=== PATIENT | male | born 1985 | race Caucasian/White ===

== ENCOUNTER 2018-11-18 08:37 | Emergency (ER) | payer MEDICAID, SELFPAY ==
[2018-11-18 08:43] VITALS: BP 125/74; PULSE 80; RESP 16; TEMP 36.9; O2SAT 97
--- NOTE | 2018-11-18 08:52 | ED.GENADUL_ITS ---
Discharge Plan Disposition Patient Disposition: HOME Condition: Stable Discharge Details Chief Complaint: Laceration Clinical Impression: Laceration of knee, left Primary Care Provider: Seth Barrera ED Provider: Christiano Gardner Home Meds and New Rx's Prescriptions: No Action prazosin 1 MG capsule 1 mg PO QAM Qty: 30 RF: 11 amitriptyline 50 MG tablet 50 mg PO HS 30 Days Qty: 30 RF: 11 fluvoxamine 50 MG tablet 150 mg PO HS Qty: 150 RF: 11 prazosin 2 MG capsule 4 mg PO QPM Qty: 60 RF: 11 Discharge Instructions Instructions: Laceration (ED) Additional Instructions: return in 10 days for suture removal if redness spreads away from the knee or you have yellow/white discharge from the wound return to the emergency department Medical Decision Making Pt was cutting using a chainsaw when it slipped and hit left anterior leftknee. Denies loc or other injuries. Has 3 lacerations that run vertically over the anterior left knee that are 3,1 and 2cm in length. Has full rom of the knee so doubt tendon injury and not deep enough where joint capsul involvement would be worrisome, will irrigtae and suture. wounds closed with 11 sutures, return precautions given for infection and he will return in 10 days for wound eval for suture removal Differential Diagnosis lac, abrasion HPI General Mode of arrival: ambulatory . Date/Time Provider Initiated Documentation: 11/18/18 08:49 . Limitations to Documentation: no limitations . Information obtained by: patient . History of Present Illness 33 year old M presents to the emergency department with the chief complaint of left knee lac, described as moderate, Quality is described as aching, and is localized to the left and lower extremity. Patient started experiencing this minute(s) (30) and it has been constant. No relieving factors improve symptom(s), No exacerbating factors reported . Patient notes no other symptoms.. Patient did receive the following treatments prior to arrival, none Related Data Home Medications Medication Instructions Recorded Confirmed amitriptyline 50 mg PO HS 30 Days #30 tab-cap 02/22/18 fluvoxamine 150 mg PO HS #150 tab-cap 02/22/18 prazosin 1 mg PO QAM #30 tab-cap 02/22/18 prazosin 4 mg PO QPM #60 tab-cap 02/22/18 Previous Rx's Medication Instructions Recorded amitriptyline 50 mg PO HS 30 Days #30 tab-cap 02/22/18 fluvoxamine 150 mg PO HS #150 tab-cap 02/22/18 prazosin 1 mg PO QAM #30 tab-cap 02/22/18 prazosin 4 mg PO QPM #60 tab-cap 02/22/18 Allergies Allergy/AdvReac Type Severity Reaction Status Date / Time No Known Allergies Allergy Unverified 01/24/18 18:02 General Stated Complaint: Laceration PRAVEEN: 4 Review of Systems Review of Systems All systems reviewed & are unremarkable except as noted in HPI and below Constitutional Denies chills, Denies fever(s) and Denies weakness Cardiovascular Denies chest pain and Denies dyspnea Respiratory Denies cough and Denies dyspnea Gastrointestinal Denies abdominal pain, Denies nausea and Denies vomiting Musculoskeletal Denies joint swelling Neurologic Denies weakness PFSH Family History Mother Neoplasm Father Heart disease Myocardial infarction Grandfather Heart disease Myocardial infarction Grandfather Heart disease Myocardial infarction Grandmother No problems noted. Grandmother No problems noted. Social History Smoking/Tobacco Use Status: Current every day Drug use: Never Do you feel safe in your relationship?: Yes Exam Const General: no acute distress Orientation: alert HENMT Head: normal to inspection Ears: external ears normal General nose exam: external nose normal Mouth: moist mucous membranes Eyes General: appearance normal, both eyes and all related structures Neck Neck: normal visual inspection Resp Effort & Inspection: normal respiratory effort and able to speak in complete sentences Cardio Rate: regular rate Skin General skin exam: no rashes or lesions noted Neuro General: alert and oriented x3 Extrem General: full ROM Psych Mental Status: mental status grossly normal Course Vital Signs Temperature 36.9 C 11/18/18 08:43 Pulse 80 11/18/18 08:43 Respiratory Rate 16 11/18/18 08:43 Blood Pressure 125/74 11/18/18 08:43 Pulse Oximetry 97 11/18/18 08:43 Temperature 36.9 C 11/18/18 08:43 Temperature Source Skin 11/18/18 08:43 Pulse 80 11/18/18 08:43 Respiratory Rate 16 11/18/18 08:43 Blood Pressure 125/74 11/18/18 08:43 Blood Pressure Position Sitting 11/18/18 08:43 Pulse Oximetry 97 11/18/18 08:43 Oxygen Delivery Method Room Air 11/18/18 08:43 Oxygen Flow Rate 0 11/18/18 08:43 Pain Level 4 11/18/18 08:43 Procedures Laceration Laceration 1: Site: lower extremity Side (If applicable): left Size (cm): 6 Description: linear Depth: simple, single layer Local Anesthetic: with Epi Amount of anesthesia used (mL): 10 Pre-repair: wound explored Skin layer closed with: nylon Size (cm): 4-0 Number of sutures: 11 Technique: simple, interrupted
== END 2018-11-18 09:40 | disposition home or self-care (01) ==
PROVIDERS: Emergency Provider Emergency Medicine; PCP Family Medicine
DX: S81.012A Laceration without foreign body, left knee, initial encounter (principal); W29.3XXA Contact with powered garden and outdoor hand tools and machinery, initial encounter
CPT/HCPCS: 12002; 90471

== ENCOUNTER 2020-01-02 20:36 | Outpatient (REF) | payer MEDICAID, SELFPAY ==
[2020-01-04 14:39] LABS: Chlamydia Result Negative (Negative); GC Result Negative (Negative)
== END 2020-01-02 20:56 ==
LOC: LBN 20:36
PROVIDERS: PCP Family Medicine; Visit Provider Family Medicine
DX: R30.0 Dysuria (principal); Z11.3 Encounter for screening for infections with a predominantly sexual mode of transmission
CPT/HCPCS: 87491; 87591

== ENCOUNTER 2020-12-11 00:57 | Outpatient (CLI) | payer MEDICAID, SELFPAY ==
--- NOTE | 2020-12-11 13:00 | DI.RAD_ITS ---
Exam(s) XR SHOULDER RT COMPLETE 2+V EXAM: XR SHOULDER RT COMPLETE 2+V CLINICAL HISTORY: right shoulder pain,m25.511. TECHNIQUE: 2D digital imaging was performed. COMPARISON: No exams were available for comparison FINDINGS: BONES: No acute fracture is present. No bony destructive lesion is seen. JOINTS: No dislocation present. SOFT TISSUE: Normal. IMPRESSION: Unremarkable radiographs of the right shoulder. DATA REPOSITORY: RADIATION DOSE DELIVERED:
--- NOTE | 2020-12-11 13:16 | DI.CT_ITS ---
Exam(s) CT HEAD WO EXAM: CT HEAD WO CLINICAL HISTORY: headache,r51.9. TECHNIQUE: Imaging Protocol: Axial computed tomography images with coronal and sagittal reformatted images were created and reviewed COMPARISON: No exams were available for comparison FINDINGS: Ventricles and Extra axial spaces: Normal in size and morphology for the patient's age. Hemorrhage: None. Cerebral parenchyma: Normal. Midline shift: None. Brainstem/Cerebellum: Normal. Calvarium: Normal. Visualized Paranasal sinuses/Mastoids: Clear. Soft Tissues: Unremarkable. IMPRESSION: No acute intracranial process. RADIATION DOSE DELIVERED: 842.02mGy.cm Total DLP DATA REPOSITORY: All CT scans at this facility are submitted to the National Radiology Data Registry (NRDR) Dose Index Registry (DIR) with the [employer] [place] [employer] [employer] (ACR). RADIATION OPTIMIZATION: All CT scans at this facility use at least one of these dose optimization te chniques: automated exposure control; mA and/or kV adjustment per patient size (includes targeted exa ms where dose is matched to clinical indication); or iterative reconstruction.
== END 2020-12-11 01:17 ==
PROVIDERS: PCP Family Medicine; Visit Provider Nurse Practitioner Family
DX: R51.9 Headache, unspecified (principal); M25.511 Pain in right shoulder
CPT/HCPCS: 70450; 73030

== ENCOUNTER 2021-08-07 01:53 | Outpatient (CLI) | payer MEDICAID, SELFPAY ==
[2021-08-07 13:13] LABS: Anion Gap 10.1 mmol/L (3-11); BUN 19 mg/dL (7-18); CO2 25.9 mmol/L (21.0-32.0); CREATININE 0.9 mg/dL (0.70-1.30); Calcium 9.2 mg/dL (8.5-10.1); Calculated LDL 156 mg/dL (<100); Chloride 104 mmol/L (98-107); Cholesterol 231 mg/dL (<200); Glucose 89 mg/dL (74-106); HDL Cholesterol 65 mg/dL (40-60); Potassium 4.2 mmol/L (3.5-5.1); Sodium 140 mmol/L (136-145); Triglyceride 54 mg/dL (<150)
== END 2021-08-07 01:54 | disposition home or self-care (01) ==
LOC: LBO 01:53
PROVIDERS: PCP Family Medicine; Visit Provider Family Medicine
DX: I10 Essential (primary) hypertension (principal); Z00.00 Encounter for general adult medical examination without abnormal findings
CPT/HCPCS: 36415; 80048; 80061

== ENCOUNTER 2022-07-16 10:45 | Outpatient (CLI) | payer MEDICAID, SELFPAY ==
--- NOTE | 2022-07-16 10:45 | RT.EKG_ITS ---
APPROVED REPORT Exam: Resting ECG Reason for Exam: anxiety Patient Location: O HR:74 bpm ECG Measurements Heart Rate 74 AXIS MS 133 P 64 QRSd 92 QRS 51 QT 373 T 40 QTc 414 Conclusion Sinus rhythm...normal P axis, V-rate 50- 99 RSR' in V1 or V2, probably normal variant...small R' only Normal Electrocardiogram
== END 2022-07-16 10:46 | disposition home or self-care (01) ==
LOC: DI.CM 10:50
PROVIDERS: PCP Family Medicine; Visit Provider Nurse Practitioner Family
DX: F41.9 Anxiety disorder, unspecified (principal)
CPT/HCPCS: 93010

== ENCOUNTER 2022-07-16 12:24 | Outpatient (REF) | payer MEDICAID, SELFPAY ==
[2022-07-16 21:57] LABS: HCT 44.4 % (40.0-50.0); HGB 14.4 g/dL (13.5-17.5); MCH 26.7 pg (27.0-33.0); MCHC 32.4 % (32.0-36.0); MCV 82 fL (80-95); Platelet Count 357 10^3/uL (130-400); RDW 13.9 % (11.8-14.1); RDW-SD 41.2 fL; WBC 7.05 10^3/uL (4.4-10.8)
[2022-07-16 22:06] LABS: ALT 44 U/L (16-63); AST 30 U/L (15-37); Albumin 4.5 g/dL (3.4-5.0); Alkaline Phosphatase 63 U/L (46-116); BUN 11 mg/dL (7-18); Bilirubin, Total 0.9 mg/dL (0.2-1.0); Calcium 9.8 mg/dL (8.5-10.1); Chloride 101 mmol/L (98-107); Estimated GFR 101.28 (mL/min/1.73m2); Glucose 107 mg/dL (74-106); Magnesium 2.2 mg/dL (1.8-2.4); Potassium 4.4 mmol/L (3.5-5.1); Sodium 137 mmol/L (136-145); Total Protein 8.1 g/dL (6.4-8.2)
[2022-07-17 14:56] LABS: Hemoglobin A1C 5.5 % (<5.7)
== END 2022-07-16 12:25 | disposition home or self-care (01) ==
LOC: LBN 12:24
PROVIDERS: PCP Family Medicine; Visit Provider Nurse Practitioner Family
DX: R00.2 Palpitations (principal); R73.9 Hyperglycemia, unspecified
CPT/HCPCS: 80053; 85027; 83036; 83735

== ENCOUNTER 2023-01-04 13:45 | Emergency (ER) | payer MEDICAID, SELFPAY ==
[2023-01-04 13:48] VITALS: BP 114/73; PULSE 69; RESP 16; TEMP 37.1; O2SAT 100
--- NOTE | 2023-01-04 15:28 | ED.GENADUL_ITS ---
Discharge Plan Disposition Patient Disposition: Home Condition: Good Discharge Details Clinical Impression: Laceration of finger of right hand Primary Care Provider: Zoie Whitmore ED Provider: Sindy Crook Home Meds and New Rx's Prescriptions: Continued lisdexamfetamine 60 mg capsule 60 mg PO DAILY MDD 60 Qty: 28 0RF Discharge Instructions Instructions: Finger Laceration (ED) Additional Instructions: Keep the wound clean and dry for 48 hours. You may then cover this with Band- Aid. Stitches out in 10 days. Return to ED for fever of 100.4 or above, increased redness, red streaks up the arm, any other concerns. Discharge Data Discharge Date/Time-TO BE ENTERED AT DEPARTURE: 01/04/23 15:52 Medical Decision Making Stitches out in 10 days. Pt. will keep clean and dry for 48 hrs and then switch to bandaid. He will return for redness, red streaks, fever, other concerns. HPI General Date/Time Provider Initiated Documentation: 01/04/23 14:17 . HPI Narrative: He presents with a chief complaint of right second finger laceration sustained on a paint scraper at home. The patient reports to me that his tetanus shot is up-to-date as he last had 1 4 to 4-1/2 years ago. He also scraped his middle and ring fingers but these are superficial. He reports to me that he is getting in 2 weeks and his fianc?e said that he better come in and get it checked because if it got infected and interfered with the wedding she was not going to be happy. Bleeding was controlled at home. The patient has minor pain. There is no weakness or numbness and he has full range of motion. Pain is sharp minor when he is not moving it. Related Data Home Medications Medication Instructions Recorded Confirmed lisdexamfetamine 60 mg capsule 60 mg PO DAILY #28 caps 12/26/22 01/04/23 Previous Rx's Medication Instructions Recorded lisdexamfetamine 60 mg capsule 60 mg PO DAILY #28 caps 12/26/22 Allergies Allergy/AdvReac Type Severity Reaction Status Date / Time No Known Allergies Allergy Verified 01/04/23 13:51 General Stated Complaint: Laceration PRAVEEN: 4 Review of Systems Musculoskeletal Musculoskeletal: Denies numbness, Denies tingling and Reports other (Has finger laceration) Integumentary/Breasts Skin/Breast: Reports other (Has finger lack) Neurologic Neurologic: Denies numbness and Denies tingling PFSH All Active Problems Irritable bowel syndrome (Chronic) Right shoulder pain (Chronic) Anxiety and depression (Chronic) h/o hospitalization, treatment with ECT (helpful but too expensive) Alcohol use disorder (Chronic) Insomnia disorder, with non-sleep disorder mental comorbidity, persistent (Chronic) ADHD (attention deficit hyperactivity disorder) (Chronic) Palpitations (Acute) Urinary urgency (Acute) Hyperglycemia (Acute) Impacted cerumen (Acute) Laceration of finger of right hand (Acute) Family History Mother Breast cancer Father Heart disease Myocardial infarction Depression Alcohol use disorder Grandfather Heart disease Myocardial infarction Grandfather Heart disease Myocardial infarction Brother Diabetes PTSD (post-traumatic stress disorder) Depression Sister No problems noted. Social History Smoking/Tobacco Use Status: Never Smoking risk assessment performed?: Yes Alcohol Intake: former Details: drinks between 3-8 beers / day until starting vyvanse 02/2022 Drug use: Never Household members: significant other Number of Children: 1 Education Level: high school current occupation: self employed carpentry, managing business himself Do you feel safe at home: Yes Do you feel safe in your relationship?: Yes Additional Social history: Enjoys hunting, fishing, sports. Exam Const General: no acute distress and well developed Nutritional Appearance: well nourished Orientation: alert, awake and oriented x3 HENMT Head: normocephalic and atraumatic Eyes Conjunctivae: conjunctivae normal Neck Neck: supple Resp Effort & Inspection: normal respiratory effort Skin General skin exam: other (PWD) Trauma: laceration (R 2nd finger) Neuro Motor: muscle tone normal throughout Sensory Exam: no sensory deficits noted Extrem Right upper extremity: hand (R dorsal 2nd finger distal phalange with 1 cm lac into fat, FROM, sensation) Course Vital Signs Vital signs: Vital Signs Temperature 37.1 C 01/04/23 13:48 Pulse 69 01/04/23 13:48 Respiratory Rate 16 01/04/23 13:48 Blood Pressure 114/73 01/04/23 13:48 Pulse Oximetry 100 01/04/23 13:48 Temperature 37.1 C 01/04/23 13:48 Temperature Source Skin 01/04/23 13:48 Pulse 69 01/04/23 13:48 Respiratory Rate 16 01/04/23 13:48 Blood Pressure 114/73 01/04/23 13:48 Blood Pressure Position Sitting 01/04/23 13:48 Pulse Oximetry 100 01/04/23 13:48 Oxygen Delivery Method Room Air 01/04/23 13:48 Oxygen Flow Rate 0 01/04/23 13:48 Pain Level 2 01/04/23 13:57 Procedures Other Description: Laceration repair: R 2nd finger prepped with betadine and sterilely prepped. Explored, no tendon visible, just into sub q tissue. 4-0 Ethicon interupteds used to approximate 1 .5 cm wound with good approximation. Pt. tolerated well. Bacitracin and sterile dsg placed.
== END 2023-01-04 15:52 | disposition home or self-care (01) ==
PROVIDERS: Emergency Provider Emergency Medicine; PCP Family Medicine
DX: S61.210A Laceration without foreign body of right index finger without damage to nail, initial encounter (principal); X58.XXXA Exposure to other specified factors, initial encounter
CPT/HCPCS: 12001

== ENCOUNTER 2023-03-14 15:20 | Emergency (ER) | payer MEDICAID, SELFPAY ==
[2023-03-14] VITALS (9 sets, daily range): BP systolic 129–147; BP diastolic 72–86; PULSE 49–59; RESP 10–17; TEMP 36.3; O2SAT 99–100
--- NOTE | 2023-03-14 15:30 | RT.EKG_ITS ---
APPROVED REPORT Exam: Resting ECG Reason for Exam: dizziness Patient Location: E HR:64 bpm ECG Measurements Heart Rate 64 AXIS WI 128 P 36 QRSd 105 QRS 61 QT 427 T 20 QTc 441 Conclusion Sinus rhythm...normal P axis, V-rate 60- 99 Probable left atrial enlargement...P >50mS, <-0.10mV V1 ST elev, probable normal early repol pattern...ST elevation, age<55
--- NOTE | 2023-03-14 15:45 | DI.RAD_ITS ---
Exam(s) XR CHEST 2V PA LATERAL EXAM: XR CHEST 2V PA LATERAL CLINICAL HISTORY: Chest pain TECHNIQUE: 2D digital imaging was performed. COMPARISON: CR CHEST 2 VIEWS PA,LAT from 04/18/2012 FINDINGS: HEART: Normal size. Aorta: Not dilated. PULMONARY VASCULATURE: Normal. LUNGS: Clear. PLEURAL SPACE: No pleural effusion or pneumothorax. BONE:Unremarkable for age. IMPRESSION: No acute abnormality. DATA REPOSITORY: RADIATION DOSE DELIVERED:
--- NOTE | 2023-03-14 15:45 | DI.CT_ITS ---
Exam(s) CT HEAD WO EXAM: CT HEAD WO CLINICAL HISTORY: Dizziness, LOCKHART, blurry visionHead injury 1 week ago. TECHNIQUE: Imaging Protocol: Axial computed tomography images with coronal and sagittal reformatted images were created and reviewed COMPARISON: CT CT HEAD WO from 12/11/2020 FINDINGS: Ventricles and Extra axial spaces: Normal in size and morphology for the patient's age. Hemorrhage: None. Cerebral parenchyma: No evidence of acute infarct or mass. Midline shift: None. Brainstem/Cerebellum: Normal. Calvarium: Normal. Visualized Paranasal sinuses/Mastoids: Clear. Soft Tissues: Unremarkable. IMPRESSION: No acute intracranial process. RADIATION DOSE DELIVERED: 782.97mGy.cm Total DLP DATA REPOSITORY: All CT scans at this facility are submitted to the National Radiology Data Registry (NRDR) Dose Index Registry (DIR) with the [employer] (ACR). RADIATION OPTIMIZATION: All CT scans at this facility use at least one of these dose optimization te chniques: automated exposure control; mA and/or kV adjustment per patient size (includes targeted exa ms where dose is matched to clinical indication); or iterative reconstruction.
--- NOTE | 2023-03-14 15:51 | W.ED.GENAD ---
Discharge Plan Disposition Patient Disposition: Home Condition: Stable Discharge Details Clinical Impression: Hypokalemia, Nausea, Stress Primary Care Provider: Zoie Whitmore ED Provider: Corin Landrum Home Meds and New Rx's Prescriptions: No Action lisdexamfetamine 60 mg capsule 60 mg PO DAILY MDD 60 Qty: 28 0RF lisdexamfetamine [Vyvanse] 40 mg capsule 40 mg PO DAILY MDD 60mg Qty: 28 0RF Rx Instructions: Take with 20mg capsule. lisdexamfetamine [Vyvanse] 20 mg capsule 20 mg PO DAILY MDD 60 Qty: 28 0RF Rx Instructions: Take with 40mg capsule Discharge Instructions Instructions: Hypokalemia (ED), Weakness (ED) Additional Instructions: No evidence of urinary tract infection, normal head CT normal chest x-ray. Your initial troponin within normal limits. Please discuss with your primary care doctor a outpatient follow-up stress test and echocardiogram if needed. Follow up with primary care provider in 3-5 days. Return to ED sooner if any worsening or concerns. Increase oral fluids. Your potassium was slightly low we did give you a supplement here today. Stand Alone Forms: Work Release Referrals: Zoie Whitmore MD [Primary Care Provider] - 5 days Discharge Data Discharge Date/Time-TO BE ENTERED AT DEPARTURE: 03/14/23 19:27 Medical Decision Making 37-year-old male presents to the ER with a chief complaint of episode of profuse sweating, nausea dizziness headache confusion body aches began approximately an hour ago while being outside. He said that he was cutting some sheet-metal and this occurred. He also reports he had a smaller episode yesterday which was very short and mild. He also notes chest pain which he states is a 3 out of 10. He does relay that he hit the top of his head about 6 days ago on the top of his car. He also notes some blurry vision. No obvious focal neurodeficits noted. Lungs are clear to auscultation he is speaking in full sentences. Vital signs are stable. He does have a history of anxiety and takes Vyvanse daily. Other past medical history include irritable bowel syndrome, anxiety depression alcohol use disorder ADHD and hyperglycemia. He reports occasional alcohol use he is a non-smoker. He does report that his family history involves paternal and grandfather heart attack at age 52. EKG was reviewed by Dr. Gardner ER attending, please see his official report. Work-up ordered including CBC CMP serial troponins, alcohol level, urinalysis urine drug screen COVID swab. Chest x-ray and head CT. 324 mg of aspirin. Differential diagnosis includes but not limited to stress reaction, CAD, viral illness, CVA Work-up is largely unremarkable negative head CT negative chest x-ray White blood cell count is 14.16, absolute neutrophils 11.21, potassium slightly low at 3.2 urinalysis at this time is still pending. COVID is negative. We will repeat troponin now plan to discharge patient home. Repeat Troponin canceled due to unable to obtain blood draw, , pt discharged to home in hemodynamically stable condition, alert and oriented. Medical Records Medical records reviewed: Yes I reviewed the patient's medical records. Lab Data Lab results reviewed: Yes I reviewed the patient's lab results. Labs: Laboratory Tests Range/Units 03/14/23 03/14/23 03/14/23 15:35 15:35 15:35 WBC (4.4-10.8) 10^3/uL 14.16 H RBC (4.36-5.78) 10^6/uL 5.46 Hgb (13.5-17.5) g/dL 14.5 Hct (40.0-50.0) % 44.1 MCV (80-95) fL 81 MCH (27.0-33.0) pg 26.6 L MCHC (32.0-36.0) % 32.9 RDW (11.8-14.1) % 13.1 Plt Count (130-400) 10^3/uL 299 MPV (8.0-11.0) fL 8.9 Immature Gran % 0.4 Neutrophils % 79.2 Lymphocytes % 14.4 Monocytes % 4.7 Eosinophils % 0.7 Basophils % 0.6 Nucleated RBC % (0.0-0.3) % 0.0 Absolute Neutrophils (1.2-6.7) 10^3/uL 11.21 H Absolute Lymphocytes (1.2-3.4) 10^3/uL 2.04 Absolute Monocytes (0.1-0.8) 10^3/uL 0.67 Absolute Eosinophils (0.0-0.7) 10^3/uL 0.10 Absolute Basophils (0.0-0.2) 10^3/uL 0.08 Sodium (136-145) mmol/L 136 Potassium (3.5-5.1) mmol/L 3.2 L Chloride (98-107) mmol/L 98 Carbon Dioxide (21.0-32.0) mmol/L 26.6 Anion Gap (3-11) mmol/L 11.4 H BUN (7-18) mg/dL 17 Creatinine (0.70-1.30) mg/dL 0.9 Est GFR (CKD-EPI 2020) (mL/min/1.73m2) 114.22 Glucose (74-106) mg/dL 95 Calcium (8.5-10.1) mg/dL 9.7 Magnesium (1.8-2.4) mg/dL 2.2 Total Bilirubin (0.2-1.0) mg/dL 0.9 AST (15-37) U/L 22 ALT (16-63) U/L 30 Alkaline Phosphatase (46-116) U/L 61 Troponin I (<or=60) ng/L < 50 Total Protein (6.4-8.2) g/dL 8.7 H Albumin (3.4-5.0) g/dL 4.6 TSH (0.36-3.74) uIU/mL 1.08 Urine Color (Yellow) Urine Clarity (Clear) Urine pH (5-8) Ur Specific [place] (1.005-1.025) Urine Protein (Negative) mg/dL Urine Ketones (Negative) mg/dL Urine Blood (Negative) Urine Nitrite (Negative) Urine Bilirubin (Negative) Urine Urobilinogen (Up to 0.2) mg/dL Ur Leukocyte Esterase (Negative) Urine Glucose (Negative) mg/dL Urine Opiates Screen Urine Methadone Screen Ur Barbiturates Screen Ur Tricyclics Screen Ur Amphetamines Screen U Benzodiazepines Scrn Urine Cocaine Screen Ur THC Screen Ethyl Alcohol (<10) mg/dL < 3.0 COVID-19 Source SARS-CoV-2 (PCR) (Negative) Range/Units 03/14/23 03/14/23 03/14/23 16:07 17:56 17:56 WBC (4.4-10.8) 10^3/uL RBC (4.36-5.78) 10^6/uL Hgb (13.5-17.5) g/dL Hct (40.0-50.0) % MCV (80-95) fL MCH (27.0-33.0) pg MCHC (32.0-36.0) % RDW (11.8-14.1) % Plt Count (130-400) 10^3/uL MPV (8.0-11.0) fL Immature Gran % Neutrophils % Lymphocytes % Monocytes % Eosinophils % Basophils % Nucleated RBC % (0.0-0.3) % Absolute Neutrophils (1.2-6.7) 10^3/uL Absolute Lymphocytes (1.2-3.4) 10^3/uL Absolute Monocytes (0.1-0.8) 10^3/uL Absolute Eosinophils (0.0-0.7) 10^3/uL Absolute Basophils (0.0-0.2) 10^3/uL Sodium (136-145) mmol/L Potassium (3.5-5.1) mmol/L Chloride (98-107) mmol/L Carbon Dioxide (21.0-32.0) mmol/L Anion Gap (3-11) mmol/L BUN (7-18) mg/dL Creatinine (0.70-1.30) mg/dL Est GFR (CKD-EPI 2020) (mL/min/1.73m2) Glucose (74-106) mg/dL Calcium (8.5-10.1) mg/dL Magnesium (1.8-2.4) mg/dL Total Bilirubin (0.2-1.0) mg/dL AST (15-37) U/L ALT (16-63) U/L Alkaline Phosphatase (46-116) U/L Troponin I (<or=60) ng/L Total Protein (6.4-8.2) g/dL Albumin (3.4-5.0) g/dL TSH (0.36-3.74) uIU/mL Urine Color (Yellow) Yellow Urine Clarity (Clear) Clear Urine pH (5-8) 6.0 Ur Specific [place] (1.005-1.025) <= 1.005 Urine Protein (Negative) mg/dL Negative Urine Ketones (Negative) mg/dL Negative Urine Blood (Negative) Negative Urine Nitrite (Negative) Negative Urine Bilirubin (Negative) Negative Urine Urobilinogen (Up to 0.2) mg/dL 0.2 Ur Leukocyte Esterase (Negative) Negative Urine Glucose (Negative) mg/dL Negative Urine Opiates Screen Cancelled Urine Methadone Screen Cancelled Ur Barbiturates Screen Cancelled Ur Tricyclics Screen Cancelled Ur Amphetamines Screen Cancelled U Benzodiazepines Scrn Cancelled Urine Cocaine Screen Cancelled Ur THC Screen Cancelled Ethyl Alcohol (<10) mg/dL COVID-19 Source Nasal/Nares SARS-CoV-2 (PCR) (Negative) Negative Range/Units 03/14/23 18:37 WBC (4.4-10.8) 10^3/uL RBC (4.36-5.78) 10^6/uL Hgb (13.5-17.5) g/dL Hct (40.0-50.0) % MCV (80-95) fL MCH (27.0-33.0) pg MCHC (32.0-36.0) % RDW (11.8-14.1) % Plt Count (130-400) 10^3/uL MPV (8.0-11.0) fL Immature Gran % Neutrophils % Lymphocytes % Monocytes % Eosinophils % Basophils % Nucleated RBC % (0.0-0.3) % Absolute Neutrophils (1.2-6.7) 10^3/uL Absolute Lymphocytes (1.2-3.4) 10^3/uL Absolute Monocytes (0.1-0.8) 10^3/uL Absolute Eosinophils (0.0-0.7) 10^3/uL Absolute Basophils (0.0-0.2) 10^3/uL Sodium (136-145) mmol/L Potassium (3.5-5.1) mmol/L Chloride (98-107) mmol/L Carbon Dioxide (21.0-32.0) mmol/L Anion Gap (3-11) mmol/L BUN (7-18) mg/dL Creatinine (0.70-1.30) mg/dL Est GFR (CKD-EPI 2020) (mL/min/1.73m2) Glucose (74-106) mg/dL Calcium (8.5-10.1) mg/dL Magnesium (1.8-2.4) mg/dL Total Bilirubin (0.2-1.0) mg/dL AST (15-37) U/L ALT (16-63) U/L Alkaline Phosphatase (46-116) U/L Troponin I (<or=60) ng/L Cancelled Total Protein (6.4-8.2) g/dL Albumin (3.4-5.0) g/dL TSH (0.36-3.74) uIU/mL Urine Color (Yellow) Urine Clarity (Clear) Urine pH (5-8) Ur Specific [place] (1.005-1.025) Urine Protein (Negative) mg/dL Urine Ketones (Negative) mg/dL Urine Blood (Negative) Urine Nitrite (Negative) Urine Bilirubin (Negative) Urine Urobilinogen (Up to 0.2) mg/dL Ur Leukocyte Esterase (Negative) Urine Glucose (Negative) mg/dL Urine Opiates Screen Urine Methadone Screen Ur Barbiturates Screen Ur Tricyclics Screen Ur Amphetamines Screen U Benzodiazepines Scrn Urine Cocaine Screen Ur THC Screen Ethyl Alcohol (<10) mg/dL COVID-19 Source SARS-CoV-2 (PCR) (Negative) HPI General Mode of arrival: ambulatory. Date/Time Provider Initiated Documentation: 03/14/23 15:33. Limitations to Documentation: no limitations. Information obtained by: patient, RN notes reviewed and old records reviewed. HPI Narrative: 37-year-old male presents to the ER with a chief complaint of episode of profuse sweating, nausea dizziness headache confusion body aches began approximately an hour ago while being outside. He said that he was cutting some sheet-metal and this occurred. He also reports he had a smaller episode yesterday which was very short and mild. He also notes chest pain which he states is a 3 out of 10. He does relay that he hit the top of his head about 6 days ago on the top of his car. He also notes some blurry vision. No obvious focal neurodeficits noted. Lungs are clear to auscultation he is speaking in full sentences. Vital signs are stable. He does have a history of anxiety and takes Vyvanse daily. Other past medical history include irritable bowel syndrome, anxiety depression alcohol use disorder ADHD and hyperglycemia. He reports occasional alcohol use he is a non-smoker. He does report that his family history involves paternal and grandfather heart attack at age 52. Related Data Home Medications Medication Instructions Recorded Confirmed lisdexamfetamine 60 mg capsule 60 mg PO DAILY #28 caps 02/06/23 03/14/23 lisdexamfetamine 20 mg capsule 20 mg PO DAILY #28 caps 03/11/23 (Vyvanse) lisdexamfetamine 40 mg capsule 40 mg PO DAILY #28 caps 03/11/23 (Vyvanse) Previous Rx's Medication Instructions Recorded lisdexamfetamine 60 mg capsule 60 mg PO DAILY #28 caps 02/06/23 lisdexamfetamine 20 mg capsule 20 mg PO DAILY #28 caps 03/11/23 (Vyvanse) lisdexamfetamine 40 mg capsule 40 mg PO DAILY #28 caps 03/11/23 (Vyvanse) Allergies Allergy/AdvReac Type Severity Reaction Status Date / Time No Known Allergies Allergy Verified 03/14/23 15:29 General Stated Complaint: GenMedical PRAVEEN: 3 Review of Systems All systems reviewed & are unremarkable except as noted in HPI and below Constitutional Constitutional: Reports as per HPI, Reports body ache(s), Reports excessive sweating, Reports fatigue and Reports headache(s) ENT Ears, Nose, Mouth, and Throat: Reports headache(s) and Reports disequilibrium Cardiovascular Cardiovascular: Reports as per HPI, Reports chest pain and Denies dyspnea Respiratory Respiratory: Denies cough, Denies hemoptysis and Denies dyspnea Gastrointestinal Gastrointestinal: Denies abdominal pain, Denies diarrhea, Reports nausea and Denies vomiting Genitourinary Genitourinary: Reports urinary urgency Musculoskeletal Musculoskeletal: Reports tingling (Bilateral fingers) Neurologic Neurologic: Reports as per HPI, Reports headache(s), Reports tingling (Bilateral fingers) and Reports disequilibrium Psychiatric Psychiatric: Reports anxiety Endocrine Endocrine: Reports excessive sweating and Reports fatigue PFSH All Active Problems (Updated 03/14/23 @ 18:23 by Corin Landrum NP) Irritable bowel syndrome (Chronic) Anxiety and depression (Chronic) h/o hospitalization, treatment with ECT (helpful but too expensive) Alcohol use disorder (Chronic) ADHD (attention deficit hyperactivity disorder) (Chronic) Hyperglycemia (Acute) Hypokalemia (Acute) Nausea (Acute) Stress (Acute) Family History Mother Breast cancer Father Heart disease Myocardial infarction Depression Alcohol use disorder Grandfather Heart disease Myocardial infarction Grandfather Heart disease Myocardial infarction Brother Diabetes PTSD (post-traumatic stress disorder) Depression Sister No problems noted. Social History Smoking/Tobacco Use Status: Current-Occasional Tobacco Type: smokeless tobacco Smoking risk assessment performed?: Yes Alcohol Intake: current Alcohol Intake frequency: holidays/special occasions only Details: drinks between 3-8 beers / day until starting vyvanse 02/2022 Drug use: Never Substance use type: does not use Household members: significant other Number of Children: 1 Education Level: high school current occupation: self employed carpentry, managing business himself Do you feel safe at home: Yes Do you feel safe in your relationship?: Yes Additional Social history: Enjoys hunting, fishing, sports. Exam Narrative Exam Narrative: Constitutional: Alert and oriented x3. Appears stated age. Normal body habitus. Head: Normocephalic, no trauma. Eyes: Pupils PERRL, Red reflex noted, EOM's intact. Eyelids symmetrical without lesions, discharge, or swelling. ENT: Bilateral TM's WNL, External ear normal to inspection, no mastoid TTP, swelling, or erythema, Nasal turbinates WNL, no nasal discharge. Normal dentition, Posterior pharynx WNL, no exudate. Chest: RRR, Normal S1, S2, distal pulses intact. Resp: Lungs clear to auscultation bilaterally, no wheezes, rales, or rhonchi. Abdomen: Soft, non-distended, Normoactive bowel sounds all 4 quads. Musculoskeletal: Unable to assess gait, 5/5 strength to all four extremities. Skin: No suspicious rashes or lesions. Capillary refill less than 2 sec. Neurologic: Cranial nerves II-XII intact. Alert and oriented x 3. Motor: No deficits noted. Sensory: Intact bilaterally all 4 extremities. Reflexes: DTR's intact bilaterally.. Hematologic/Lymphatic: No ecchymosis, no lymphadenopathy. Course Vital Signs Vital signs: Vital Signs Temperature 36.3 C L 03/14/23 15:23 Pulse 53 L 03/14/23 15:23 Respiratory Rate 16 03/14/23 15:23 Blood Pressure 147/86 H 03/14/23 15:23 Pulse Oximetry 100 03/14/23 15:23 Temperature 36.3 C L 03/14/23 15:23 Temperature Source Temporal Artery Scan 03/14/23 15:23 Pulse 53 L 03/14/23 15:23 Respiratory Rate 12 03/14/23 15:42 Respiratory Effort Normal 03/14/23 15:42 Respiratory Depth Normal 03/14/23 15:42 Respiratory Pattern Normal 03/14/23 15:42 Blood Pressure 147/86 H 03/14/23 15:23 Blood Pressure Position Sitting 03/14/23 15:23 Pulse Oximetry 100 03/14/23 15:23 Oxygen Delivery Method Room Air 03/14/23 15:23 Oxygen Flow Rate 0 03/14/23 15:23 PAWSS Have you Been Recently Intoxicated or Drunk Within the Last 30 days?: No Have you Ever Experienced Previous Episodes of Alcohol Withdrawal?: No Have you ever Experienced Withdrawal Seizures?: No Have you ever Experienced Delirium Tremens(DT)s?: No Have you ever undergone Alcohol Rehabilitation Treatment (i.e, inpt ot outpatient treatment programs)?: No Have you ever Experienced Blackouts?: No Have you ever Combined Alcohol with other Downers within the last 90 days?: No Have you ever Combined Alcohol with any other Substance of Abuse during the last 90 days?: No Result: 0
[2023-03-14 16:07] LABS: Abs Immature Grans 0.06 10^3/uL (0.0-0.06); Absolute Lymphocyte Count 2.04 10^3/uL (1.2-3.4); Absolute Neutrophil Count 11.21 10^3/uL (1.2-6.7); Basophils % 0.6; Eosinophils % 0.7; HCT 44.1 % (40.0-50.0); HGB 14.5 g/dL (13.5-17.5); Immature Grans % 0.4; Lymphocytes % 14.4; MCH 26.6 pg (27.0-33.0); MCHC 32.9 % (32.0-36.0); MCV 81 fL (80-95); MPV 8.9 fL (8.0-11.0); Monocytes % 4.7; Neutrophils % 79.2; Platelet Count 299 10^3/uL (130-400); RBC 5.46 10^6/uL (4.36-5.78); RDW 13.1 % (11.8-14.1); RDW-SD 38.2 fL; WBC 14.16 10^3/uL (4.4-10.8)
[2023-03-14 16:08] LABS: Absolute Basophil Count 0.08 10^3/uL (0.0-0.2); Absolute Monocyte Count 0.67 10^3/uL (0.1-0.8)
[2023-03-14 16:09] LABS: Source Nasal/Nares
[2023-03-14] MEDS: Ondansetron 4 MG/2 ML VIAL IVP (16:10)
[2023-03-14] MEDS: Aspirin 81 MG CHEW 324 MG CH (16:10)
[2023-03-14] MEDS: Normal Saline 1,000 ML 1000 ML IV (16:11)
[2023-03-14 16:34] LABS: ALT 30 U/L (16-63); AST 22 U/L (15-37); Albumin 4.6 g/dL (3.4-5.0); Alkaline Phosphatase 61 U/L (46-116); Anion Gap 11.4 mmol/L (3-11); BUN 17 mg/dL (7-18); Bilirubin, Total 0.9 mg/dL (0.2-1.0); CO2 26.6 mmol/L (21.0-32.0); CREATININE 0.9 mg/dL (0.70-1.30); Calcium 9.7 mg/dL (8.5-10.1); Chloride 98 mmol/L (98-107); Estimated GFR 114.22 (mL/min/1.73m2); Glucose 95 mg/dL (74-106); Magnesium 2.2 mg/dL (1.8-2.4); Potassium 3.2 mmol/L (3.5-5.1); Sodium 136 mmol/L (136-145); Total Protein 8.7 g/dL (6.4-8.2); Troponin I < 50 ng/L (<or=60)
[2023-03-14 16:40] LABS: TSH (W/Ref FT4) 1.08 uIU/mL (0.36-3.74)
[2023-03-14 16:41] LABS: COVID-19 PCR Negative (Negative)
[2023-03-14 16:41] LABS: ETHANOL BLOOD < 3.0 mg/dL (<10)
--- NOTE | 2023-03-14 17:30 | DI.VRAD_ITS ---
PROCEDURE INFORMATION: Exam: CT Head Without Contrast Exam date and time: 03/14/2023 5:10 PM Age: 37 years old Clinical indication: Other: Dyspnea, elevated d dimer TECHNIQUE: Imaging protocol: Computed tomography of the head without contrast. COMPARISON: CT HEAD WO 12/11/2020 1:15 PM FINDINGS: Brain: No intracranial hemorrhage. No evidence of large vessel territory infarct. No mass or mass effect. Cerebral ventricles: Ventricles and sulci are appropriate for age. Paranasal sinuses: Visualized sinuses are unremarkable. No fluid levels. Mastoid air cells: Visualized mastoid air cells are well aerated. Bones/joints: Unremarkable. No acute fracture. Soft tissues: Unremarkable. IMPRESSION: No acute intracranial abnormality. Dictated and Authenticated by: Jose L Reese MD. Ordering:CLIFF Coombs MD
--- NOTE | 2023-03-14 17:31 | DI.VRAD_ITS ---
PROCEDURE INFORMATION: Exam: XR Chest Exam date and time: 03/14/2023 5:17 PM Age: 37 years old Clinical indication: Chest pressure; Patient HX: Chest pain TECHNIQUE: Imaging protocol: Radiologic exam of the chest. Views: 2 views. COMPARISON: CR XR SHOULDER RT COMPLETE 2+V 12/11/2020 12:56 PM FINDINGS: Lungs: No consolidation. No Mass Pleural spaces: No pleural effusion. No pneumothorax. Heart/Mediastinum: Unremarkable Bones/joints: No significant abnormality IMPRESSION: No acute findings. Dictated and Authenticated by: Jose L Reese MD. Ordering:CLIFF Coombs MD
[2023-03-14 18:18] LABS: Bilirubin Negative (Negative); Blood Negative (Negative); Clarity Clear (Clear); Glucose Negative (Negative); Ketones Negative (Negative); Leukocyte Esterase Negative (Negative); Nitrite Negative (Negative); Specific Gravity <= 1.005 (1.005-1.025); Urobilinogen 0.2 mg/dL (Up to 0.2)
[2023-03-14] MEDS: Potassium Chloride 20 MEQ TABCR 40 MEQ PO (18:23)
== END 2023-03-14 19:27 | disposition home or self-care (01) ==
PROVIDERS: Emergency Provider Registered Nurse Emergency; PCP Family Medicine
DX: R11.0 Nausea (principal); R42 Dizziness and giddiness; E87.6 Hypokalemia; R94.31 Abnormal electrocardiogram [ECG] [EKG]; F17.290 Nicotine dependence, other tobacco product, uncomplicated; Z20.822 Contact with and (suspected) exposure to COVID-19
CPT/HCPCS: 80053; 80307; 87635; 93005; 96361; 96374; 99284; 70450; 71046; 80320; 81003; 83735; 84443; 84484; 85025; 93010; J2405

== ENCOUNTER 2023-03-20 14:10 | Outpatient (CLI) | payer MEDICAID, SELFPAY ==
[2023-03-20 14:43] LABS: Abs Immature Grans 0.03 10^3/uL (0.0-0.06); Absolute Lymphocyte Count 2.67 10^3/uL (1.2-3.4); Absolute Monocyte Count 0.54 10^3/uL (0.1-0.8); Absolute Neutrophil Count 6.03 10^3/uL (1.2-6.7); Basophils % 1.1; Eosinophils % 1.1; HCT 40.2 % (40.0-50.0); HGB 13.4 g/dL (13.5-17.5); Immature Grans % 0.3; Lymphocytes % 28.2; MCH 26.6 pg (27.0-33.0); MCHC 33.3 % (32.0-36.0); MCV 80 fL (80-95); MPV 8.8 fL (8.0-11.0); Monocytes % 5.7; Neutrophils % 63.6; Platelet Count 296 10^3/uL (130-400); RBC 5.04 10^6/uL (4.36-5.78); RDW 13.3 % (11.8-14.1); RDW-SD 38.1 fL; WBC 9.47 10^3/uL (4.4-10.8)
[2023-03-20 15:23] LABS: BUN 16 mg/dL (7-18); CREATININE 0.9 mg/dL (0.70-1.30); Calcium 9.5 mg/dL (8.5-10.1); Chloride 99 mmol/L (98-107); Estimated GFR 114.22 (mL/min/1.73m2); Glucose 118 mg/dL (74-106); Potassium 3.5 mmol/L (3.5-5.1); Sodium 136 mmol/L (136-145)
[2023-03-22 23:47] LABS: Anaplasma phagocytophilum Negative (Negative); B. miyamotoi PCR Negative (Negative); Babesia divergens/MO-1 Negative (Negative); Babesia duncani Negative (Negative); Babesia microti Negative (Negative); Ehrlichia chaffeensis Negative (Negative); Ehrlichia ewingii/canis Negative (Negative); Ehrlichia muris eauclairensis Negative (Negative)
[2023-03-23 10:58] LABS: Lyme Ab w Rflx to Lyme Confirm Negative (Negative)
== END 2023-03-20 14:11 | disposition home or self-care (01) ==
LOC: LBO 14:10
PROVIDERS: PCP Family Medicine; Visit Provider Nurse Practitioner Family
DX: E87.6 Hypokalemia (principal); M79.18 Myalgia, other site; R78.71 Abnormal lead level in blood; R53.83 Other fatigue
CPT/HCPCS: 36415; 80048; 87798; 83655; 85025; 86618

== ENCOUNTER 2023-04-02 05:03 | Outpatient (CLI) | payer MEDICAID, SELFPAY ==
[2023-04-06 12:54] LABS: Albumin 63.5 % (55.8-66.1); Total Protein 7.9 g/dL (6.3-8.2)
[2023-04-06 16:08] LABS: Albumin, Urine % 15.8 %; Albumin, Urine mg/dL <1 mg/dL; Globulins, Urine % 84.2 %; Globulins, Urine mg/dL <4 mg/dL; Immunotyping, Urine (See Note); Total Protein Urine <5 mg/dL (See Note)
[2023-04-07 12:20] LABS: Renin Activity, Plasma 2.4 ng/mL/h
== END 2023-04-02 05:04 | disposition home or self-care (01) ==
LOC: LBO 05:03
PROVIDERS: PCP Family Medicine; Visit Provider Family Medicine
DX: E87.6 Hypokalemia (principal); I10 Essential (primary) hypertension; R77.9 Abnormality of plasma protein, unspecified; R53.83 Other fatigue
CPT/HCPCS: 36415; 84156; 84166; 86335; 82088; 82530; 84165; 84244

== ENCOUNTER → 2023-04-20 02:15 | Outpatient (CLI) | payer MEDICAID, SELFPAY ==
[2023-04-20] MEDS: Barium Sulfate 2% W/V-Creamy Vanilla Smoothie 450 ML BTL 900 ML PO (09:43)
[2023-04-20] MEDS: Normal Saline - Diluent 50 ML VIAL IJ (11:38)
[2023-04-20] MEDS: Omnipaque 350 MG/ML 500 ML BTL-Imaging package 100 ML IJ (11:38)
--- NOTE | 2023-04-20 11:50 | DI.CT_ITS ---
Exam(s) CT ABDOMEN PELVIS W EXAM: CT ABDOMEN PELVIS W CLINICAL HISTORY: abd pain,?LUQ mass,r10.9,r53.1. TECHNIQUE: Imaging Protocol: Axial computed tomography images with coronal and sagittal reformatted images were created and reviewed CONTRAST MATERIAL: Intravenous: Omnipaque 350 Contrast volume:100 ml Oral: yes / no COMPARISON: CT ABD PELVIS WITH CONTRAST from 07/17/2017 FINDINGS: ABDOMEN and PELVIS: Lung Bases: Normal where visualized. Liver: Normal density. No measurable mass. Gallbladder and biliary tract: No radiodense calculus or dilation. Pancreas: Normal density. No abnormal calcifications or inflammatory process. No evidence of mass. Spleen: Normal. Kidneys: Normal size, contour and axis. Symmetric nephrograms. No radiodense stones. Both renal pel ves and ureters are dilated down to the level of the bladder, greater distally. The the findings hav e worsened compared with the previous exam. No suspicious masses seen. Adrenal glands: No masses seen. Vasculature: Abdominal aorta non-dilated. Soft tissues: Tiny bilateral fatty containing inguinal hernias. Bladder: Mild wall thickening. No calculi.No focal mass. Bowel: Large quantity of stool throughout colon. No obstruction. No bowel wall thickening. Appendi x normal. Reproductive: Mild prostate enlargement. Bone: The spine and pelvis are unremarkable. IMPRESSION:: Mild to moderate bilateral hydronephrosis. The ureters are dilated down to the level of the bladder. No obstructing stone or mass is visible. Urology consult recommended. The prostate is mildly enlarged and there is mild bladder wall thickening. Large quantity of stool throughout the colon consistent with constipation. Unexpected findings RADIATION DOSE DELIVERED: Total DLP DATA REPOSITORY: All CT scans at this facility are submitted to the National Radiology Data Registry (NRDR) Dose Index Registry (DIR) with the [employer] (A[employer]). RADIATION OPTIMIZATION: All CT scans at this facility use at least one of these dose optimization te chniques: automated exposure control; mA and/or kV adjustment per patient size (includes targeted exa ms where dose is matched to clinical indication); or iterative reconstruction.
== END ==
PROVIDERS: PCP Family Medicine; Visit Provider Family Medicine
DX: N13.39 Other hydronephrosis; K59.00 Constipation, unspecified
CPT/HCPCS: 74177

== ENCOUNTER 2023-04-20 03:58 | Outpatient (CLI) | payer MEDICAID, SELFPAY ==
[2023-04-20 14:32] LABS: Vitamin B12 851 pg/mL (193-986)
[2023-04-20 14:46] LABS: Creatine Kinase 199 U/L (39-308)
[2023-04-20 21:47] LABS: Rheumatoid Factor <8.6 IU/mL (<12.0)
[2023-04-21 13:42] LABS: ANA Interpretation Negative (Negative)
[2023-04-22 11:17] LABS: Myoglobin, S 32 mcg/L (<=90)
[2023-04-23 10:46] LABS: ESR (LRH) 9 mm/hr
== END 2023-04-20 03:59 | disposition home or self-care (01) ==
PROVIDERS: PCP Family Medicine; Visit Provider Family Medicine
DX: R53.1 Weakness (principal)
CPT/HCPCS: 36415; 82550; 85652; 82607; 83519; 83874; 84550; 86038; 86431

== ENCOUNTER → 2023-05-05 00:13 | Outpatient (CLI) | payer MEDICAID, SELFPAY ==
--- NOTE | 2023-05-05 07:30 | DI.MRI_ITS ---
Exam(s) MR BRAIN WO EXAM: MR BRAIN WO CLINICAL HISTORY: diffuse weakness x 1 mo duration,r53.1 TECHNIQUE: Multiplanar multisequence MRI of the brain was performed. COMPARISON: No exams were available for comparison FINDINGS: CEREBRAL PARENCHYMA: There is no evidence of intracranial hemorrhage, mass effect, or shift of midline structures. There are no extra-axial fluid collections. Ventricles are not enlarged or shifted. There is no evidence of cerebellar tonsillar ectopia. There is no significant focal signal abnormality in the cerebellar hemispheres nor within the annika, m idbrain, and thalami. There is no abnormal signal abnormality in the periventricular white matter. No evidence of demyelin ating disease. There is no significant focal signal abnormality evident on diffusion imaging to suggest acute ischem ic event. SWI reveals no evidence of microhemorrhages in the brain. PITUITARY GLAND: No mass nor parasellar abnormality. No obvious abnormality in the cavernous sinuses. FLOW VOIDS: The expected flow void are noted. No evidence of obvious aneurysm nor obvious vascular ma lformation. PARANASAL SINUSES: The visualized paranasal sinuses appear unremarkable. No obvious finding ORBITS: No obvious findings. IMPRESSION: No significant intracranial findings on this noninfused MRI scan of the brain. DATA REPOSITORY:
== END ==
PROVIDERS: PCP Family Medicine; Visit Provider Family Medicine
DX: R53.1 Weakness (principal)
CPT/HCPCS: 70551

== ENCOUNTER 2023-07-21 03:53 | Outpatient (CLI) | payer MEDICAID, SELFPAY | END 2023-07-21 03:54 | disposition home or self-care (01) | LOC: LBO 03:54 | PROVIDERS: PCP Family Medicine; Visit Provider Family Medicine | DX: R78.71 Abnormal lead level in blood (principal) | CPT/HCPCS: 36415; 83655 ==

== ENCOUNTER 2023-10-07 16:32 | Outpatient (REF) | payer MEDICAID, SELFPAY ==
[2023-10-07 21:09] LABS: HCT 42.4 % (40.0-50.0); HGB 13.9 g/dL (13.5-17.5); MCHC 32.8 % (32.0-36.0); MCV 83 fL (80-95); MPV 9.7 fL (8.0-11.0); Platelet Count 298 10^3/uL (130-400); RBC 5.14 10^6/uL (4.36-5.78); RDW 13.3 % (11.8-14.1); RDW-SD 40.3 fL; WBC 10.76 10^3/uL (4.4-10.8)
[2023-10-07 21:12] LABS: Anion Gap 9.2 mmol/L (3-11); BUN 19 mg/dL (7-18); CO2 28.8 mmol/L (21.0-32.0); CREATININE 0.9 mg/dL (0.70-1.30); Calcium 9.3 mg/dL (8.5-10.1); Chloride 102 mmol/L (98-107); Estimated GFR 114.22 (mL/min/1.73m2); Glucose 87 mg/dL (74-106); Potassium 4.3 mmol/L (3.5-5.1); Sodium 140 mmol/L (136-145)
[2023-10-08 11:08] LABS: Bilirubin Negative (Negative); Blood Large (Negative); Clarity Sl Cloudy (Clear); Glucose Negative (Negative); Ketones Negative (Negative); Leukocyte Esterase Negative (Negative); Nitrite Negative (Negative); Urobilinogen 0.2 mg/dL (Up to 0.2)
[2023-10-08 11:21] LABS: RBC >50 HPF (0-2); WBC Negative HPF (0-5)
[2023-10-08 11:22] LABS: Bacteria Negative HPF (Negative); Crystals Negative HPF (Negative); Epithelial Cells Rare HPF (Negative); Other Cells Negative (Negative)
[2023-10-08 11:23] LABS: C & S Indicated? No; Casts 0-2 Hyaline LPF (Negative); Mucus Negative (Negative)
[2023-10-08 13:31] LABS: Lab Add On Test DONE
[2023-10-08 13:59] LABS: Bacteria Negative HPF (Negative); C & S Indicated? No; Casts 0-2 Hyaline LPF (Negative); Crystals Negative HPF (Negative); Epithelial Cells Rare HPF (Negative); Mucus Negative (Negative); RBC >50 HPF (0-2); WBC 0-2 HPF (0-5)
== END 2023-10-07 16:33 | disposition home or self-care (01) ==
LOC: LBN 16:32
PROVIDERS: PCP Family Medicine; Visit Provider Family Medicine
DX: Z87.448 Personal history of other diseases of urinary system (principal); R31.9 Hematuria, unspecified
CPT/HCPCS: 80048; 85027; 81003; 81015; 87086

== ENCOUNTER 2023-10-19 08:14 | Day surgery (SDC) | payer MEDICAID, SELFPAY ==
[2023-10-19] VITALS (8 sets, daily range): BP systolic 89–121; BP diastolic 49–77; PULSE 46–65; RESP 15–18; TEMP 36.5–36.6; O2SAT 95–100; BMI 23.3
[2023-10-19] MEDS: Lactated Ringers 1,000 ML 80 ML IV (09:03)
--- NOTE | 2023-10-19 09:45 | W.PM.HP.N ---
Date of service: 10/19/23 Time of Service: 09:46 Assessment and Plan Assessment and plan (1) Hematuria: Status: Acute Assessment and plan: For cystoscopy with bilateral retrograde pyelogram and possible bladder biopsy with fulguration to complete his hematuria workup History of Present Illness History of Present Illness Chief Complaint: Hematuria Narrative: This is a 38-year-old gentleman who has been monitored for dysfunctional voiding. He had ureteral dilation and lower urinary tract symptoms which we felt were related to a high-pressure bladder. He improved with bladder relaxers and timed voiding. He comes in now after noticing gross hematuria with no other urinary tract symptoms. He did not have any dysuria or true flank pain. He did have some lower abdominal discomfort. He has a number of systemic type symptoms including decreased energy, decreased appetite and worsening mood over the past 2 weeks. He has no fevers documented but does feel flushed at times. He has a history of irritable bowel syndrome and more recently, he has tended toward diarrhea compared to constipation. He is not on any anticoagulants. He has been evaluated with CT scans as recently as March 2023. He has had qzhrt-go-ajti ultrasounds here in the office as recently as earlier this month. He presents for cystoscopy Review of Systems Narrative: No fevers or chills Worsening floaters. No dysphasia No diabetes or thyroid dysfunction No shortness of breath, cough or hemoptysis No chest pain or palpitations IBS. No nausea, vomiting, hepatitis, ulcers, jaundice ADHD. No seizures, strokes or peripheral neuropathy No bleeding disorders or anemia No gout PFSH All Active Problems History of hydronephrosis (Acute) Hematuria (Acute) Weakness (Acute) Essential hypertension (Acute) Hyperglycemia (Acute) ADHD (attention deficit hyperactivity disorder) (Chronic) Alcohol use disorder (Chronic) Anxiety and depression (Chronic) h/o hospitalization, treatment with ECT (helpful but too expensive) Irritable bowel syndrome (Chronic) Medical History Bilateral hydronephrosis Chest pain 03/24/23 [facility]. -hb Had full work up per pt everything came back negative Family history of heart disease in male family member before age 55 Family History Mother Breast cancer Father Heart disease Myocardial infarction Depression Alcohol use disorder Grandfather Heart disease Myocardial infarction Grandfather Heart disease Myocardial infarction Brother Diabetes PTSD (post-traumatic stress disorder) Depression Sister No problems noted. Social History Smoking/Tobacco Use Status: Current-Occasional Tobacco Type: smokeless tobacco Smoking risk assessment performed?: Yes Alcohol Intake: current Alcohol Intake frequency: holidays/special occasions only Details: drinks between 3-8 beers / day until starting vyvanse 02/2022 Drug use: Never Substance use type: does not use Details: chewing tobacco occasionally Household members: significant other Housing: apartment Number of Children: 1 Education Level: high school current occupation: self employed carpentry, managing business himself Do you feel safe at home: Yes Do you feel safe in your relationship?: Yes Meds Allergies and Home Medications Allergies Allergy/AdvReac Type Severity Reaction Status Date / Time No Known Allergies Allergy Verified 10/19/23 08:31 Home Medications Medication Instructions Recorded Confirmed Type lisdexamfetamine 60 mg capsule 60 mg PO DAILY #28 caps 08/21/23 10/19/23 Rx guanfacine 1 mg tablet 1 mg PO QHS #30 tabs 09/14/23 10/16/23 Rx Exam Const General: cooperative Neck Neck: supple Resp Effort & Inspection: normal respiratory effort Auscultation: clear to auscultation bilaterally Cardio Rate: regular rate Rhythm: regular rhythm GI Palpation: soft Neuro General: patient alert, patient awake and patient oriented x3 Results Last Vital Signs Temp 36.6 C 10/19/23 08:36 Pulse 59 L 10/19/23 08:36 Resp 18 10/19/23 08:36 BP 121/77 10/19/23 08:36 Pulse Ox 100 10/19/23 08:36 Time Spent Time spent with Patient: <40 minutes Time was spent: other
--- NOTE | 2023-10-19 09:59 | W.ANESPRE ---
General Info Date of Service Date Performed: 10/19/23 Height: 5 ft 7 in Weight: 67.5 kg Body Mass Index (BMI): 23.3 Surgical Procedure: Operation Date: 10/19/23 09:55 Proposed Procedure Side Surgeon p Cystoscopy/Retrograde/Bladder Biopsy w/Fulguration Bilateral Manohar Rosales MD Pre-Op Diagnosis Post-Op Diagnosis Hematuria Hematuria Meds Allergies and Home Medications Allergies Allergy/AdvReac Type Severity Reaction Status Date / Time No Known Allergies Allergy Verified 10/19/23 08:31 Home Medication Medication Instructions Recorded lisdexamfetamine 60 mg capsule 60 mg PO DAILY #28 caps 08/21/23 guanfacine 1 mg tablet 1 mg PO QHS #30 tabs 09/14/23 Current Visit Medications: Current Medications Generic Name Dose Route Start Last Admin Trade Name Freq PRN Reason Stop Dose Admin Ringer's Solution 1,000 mls @ 80 mls/hr 10/19/23 06:00 10/19/23 09:03 IV 11/15/23 23:59 80 mls/hr INFUSION RANDY Administration Cefazolin Sodium/Dextrose 2 gm in 50 mls @ 100 mls/hr 10/19/23 06:00 Ancef Duplex IVPB 11/15/23 23:59 PREOP RANDY IV Miscellaneous Supplies 1 each 10/19/23 06:00 Iv Access IV 11/15/23 23:59 DIRECTED RANDY Sodium Chloride 0 ml 10/19/23 06:00 Normal Saline Flush 10 Ml Syr IV 11/15/23 23:59 PRN PRN Sodium Chloride 0 ml 10/19/23 06:00 Normal Saline 10 Ml Vial IJ 11/15/23 23:59 DIRECTED PRN Sterile Water 0 ml 10/19/23 06:00 Water,Injection,Sterile 10 Ml Vial IJ 11/15/23 23:59 DIRECTED PRN PFSH Active Problems Active Problems: Problem Status Onset Code History of hydronephrosis Z87.448 Hematuria R31.9 Weakness R53.1 Essential hypertension I10 Hyperglycemia R73.9 ADHD (attention deficit hyperactivity disorder) F90.9 Alcohol use disorder Anxiety and depression F41.9, F32.A Irritable bowel syndrome K58.9 Medical History Medical History Bilateral hydronephrosis Chest pain 03/24/23 [facility] [place] ED. -hb Had full work up per pt everything came back negative Family history of heart disease in male family member before age 55 Tobacco Smoking/Tobacco Use Status: Current-Occasional Tobacco Type: smokeless tobacco Alcohol Alcohol Intake: current Alcohol intake frequency: holidays/special occasions only Details: drinks between 3-8 beers / day until starting vyvanse 02/2022 Substance Use Substance use: Never Substance use type: does not use Details: chewing tobacco occasionally Vital Signs and Lab Results Vital Signs Most Recent Vital Signs in EMR: Most Recent Vital Signs Temp Pulse Resp BP Pulse Ox 36.6 C 59 L 18 121/77 100 10/19/23 08:36 10/19/23 08:36 10/19/23 08:36 10/19/23 08:36 10/19/23 08:36 Lab Results Blood Type / Crossmatch: No Data to Display Complete Blood Count: White Blood Count 10.76 10^3/uL (4.4-10.8) 10/07/23 20:53 Red Blood Count 5.14 10^6/uL (4.36-5.78) 10/07/23 20:53 Hemoglobin 13.9 g/dL (13.5-17.5) 10/07/23 20:53 Hematocrit 42.4 % (40.0-50.0) 10/07/23 20:53 Platelet Count 298 10^3/uL (130-400) 10/07/23 20:53 Complete Metabolic Panel: Sodium 140 mmol/L (136-145) 10/07/23 17:05 Potassium 4.3 mmol/L (3.5-5.1) 10/07/23 17:05 Chloride 102 mmol/L (98-107) 10/07/23 17:05 Carbon Dioxide 28.8 mmol/L (21.0-32.0) 10/07/23 17:05 BUN 19 mg/dL (7-18) H 10/07/23 17:05 Creatinine 0.9 mg/dL (0.70-1.30) 10/07/23 17:05 Est GFR (CKD-EPI 2020) 114.22 (mL/min/1.73m2) 10/07/23 17:05 Calcium 9.3 mg/dL (8.5-10.1) 10/07/23 17:05 Glucose 87 mg/dL (74-106) 10/07/23 17:05 Liver Function Panel: No Data to Display Coagulation Panel: No Data to Display Cardiac Panel: No Data to Display Arterial Blood Gas: No Data to Display Venous Blood Gas: No Data to Display Pancreas Panel: No Data to Display Thyroid Panel: No Data to Display Infectious Disease: No Data to Display Blood Cultures: No Data to Display Toxicology Panel: No Data to Display Anesthesia Assessment and Plan Anesthesia History Personal History: No History of Anesthesia Complications Family History: No Family History of Anesthesia Complications Exercise Tolerance Exercise Tolerance: Metabolic Equivalents>4 Pertinent Negatives Pertinent Negatives: No Symptoms of GERD Cardiac & Pulmonary Exam Cardiac Exam: Normal S1/S2 Heart Sounds Pulmonary Exam: Clear Bilateral Breath Sounds Implantable Cardiac Device Does patient have a Pacemaker or an ICD?: No Airway Exam Known Difficult Airway: No Mallampati Class: 1 Mouth Opening: Normal (> 3cm) Thyromental Distance: Greater than 3 cm Neck Range of Motion: Full ROM Neck Circumference: Normal Teeth Condition: Normal Dentition ASA Classification ASA Score: ASA 2 Emergency Case?: No NPO Status NPO Status: NPO Clears >2 hours, Solids >8 hours Anesthesia Plan Resuscitation Status: Full Code Anesthesia Technique: General Anesthesia Airway Planned: Endotracheal Tube Monitors Used: Standard Monitors and SedLine
[2023-10-19] MEDS: ceFAZolin 2 GM/50 ML BAG IVPB (10:18)
[2023-10-19] MEDS: Lidocaine 2% Jelly 6 ML SYR (10:43)
[2023-10-19] MEDS: Omnipaque 300 MG/ML 50 ML BTL (10:50)
--- NOTE | 2023-10-19 10:50 | BLADDER_PTH ---
PATIENT: Karl Zhong LOC: [facility] U#:[id number] AGE/SX: 38/M ROOM: RE10/19/[address]: Manohar Rosales MD : [id number] BED: DIS: 10/19/2023 SPEC #: [id number] RECD: 10/19/23 12:49 STATUS: ANTONIO RE #: [id number] JOSEF: 10/19/23 10:[address]: Manohar Rosales DEPT: Surgical Specimen RECD BY: Vicki Diego ENTERED: 10/19/23 12:50 SP TYPE: Bladder OTHR DR: Zoie Whitmore Tissues: 1 - BLADDER BIOPSY Procedures: GROSS AND MICRO LEVEL 4 Comments: [id number]
--- NOTE | 2023-10-19 10:57 | W.PM.DSUDISC ---
Date of service: 10/19/23 Time of Service: 10:57 Discharge Plan Disposition Patient Disposition: Home Discharge Details Reason For Visit: cystoscopy with bladder biopsy Attending Provider: Manohar Rosales Primary Care Provider: Zoie Whitmore Home Meds and New Rx's Prescriptions: No Action lisdexamfetamine 60 mg capsule 60 mg PO DAILY MDD 60mg Qty: 28 0RF guanfacine 1 mg tablet 1 mg PO QHS Qty: 30 2RF Patient Comments: Pt. has not started taking this RX yet Discharge Instructions Additional Instructions: Followup @ 2 weeks for pathology results Activity:: Activity as Tolerated Shower/Bathe:: 24 hours Diet:: As Tolerated Discharge Orders Discharge Orders: Discharge Order (Routine); Ordered 10/19/23 Ordered By: Manohar Rosales DS: Diagnosis Discharge Diagnosis (1) Hematuria: Status: Acute
--- NOTE | 2023-10-19 11:04 | DI.RAD_ITS ---
Exam(s) XR RETROGRADE IN OR EXAM: XR RETROGRADE IN OR CLINICAL HISTORY: Hematuria TECHNIQUE: 2D and realtime digital imaging was performed. CONTRAST MATERIAL: Refer to procedure report. COMPARISON: CT CT ABDOMEN PELVIS W from 04/20/2023 FINDINGS: Fluoroscopy was provided for Dr. Rosales during the performance of a retrograde evaluation of the kori l collecting system. Please refer to the procedure report for complete details. Ka,r=4.2 mGy IMPRESSION: RADIATION DOSE DELIVERED: 0.0 0.0 0
--- NOTE | 2023-10-19 11:17 | ROE_ITS ---
Date of service: 10/19/23 Time of Service: 11:17 Operative Note Operative Note DATE OF PROCEDURE: 10/19/23 PRE-OP DIAGNOSIS: Hematuria POST-OP DIAGNOSIS: same Bilateral hydronephrosis PROCEDURE: cystoscopy, right retrograde pyelogram, bladder biopsy with fulguration SURGEON: Manohar Rosales ANESTHESIA TYPE: Local By Surgeon and General LMA/ETT Refer to Anesthesia Record ESTIMATED BLOOD LOSS: 5 PATHOLOGY: other (bladder biopsies) COMPLICATIONS: None Patient was transported to: PACU Patient's condition: stable Implants: none Indications: This is a 38-year-old gentleman who has a history of bilateral hydronephrosis and hydroureter. We suspected a high-pressure bladder causing the radiographic findings. He has recently noticed hematuria with discoloration of his urine. His CT and ultrasounds have not identified upper tract masses. He presents for cystoscopy, bilateral retrograde pyelogram and bladder biopsy to complete his hematuria workup Findings: Right ureter dilated down to the ureterovesical junction with reflux seen coming into the bladder J hooking of the distal left ureter Procedure Description: The patient was brought to the operating room on 10/19/2023. After successful induction of general anesthesia, he was placed in the dorsal lithotomy position. His genitalia was prepped and draped. 2% Xylocaine jelly was instilled into the urethra to act as a local anesthetic. Initially, I was unable to pass my 22 [place] cystoscope through the urethral meatus, so I dilated the meatus to a size 24 [place] using [place] sound. I was then able to negotiate the scope into the urethra. We inspected the urethral mucosa and bladder using a 30 degree lens. The pendulous, bulbar and membranous urethra's appeared normal with no strictures. The prostatic urethral mucosa appeared normal with no papillary lesions. The bladder neck was entered and the bladder mucosa was inspected. Both ureteral orifices appeared normal with no blood coming from either side. The bladder was relatively smooth-walled with no papillary or nodular lesions. No diverticuli or cellules were seen. I initially attempted to cannulate the right ureteral orifice using a 5 [place] access catheter. I could not advance the catheter beyond the distal centimeter of the ureter, so I passed a guidewire through the lumen of the catheter and advanced the wire up the ureter. I was then able to pass the catheter further up the ureter. I removed the wire and injected Omnipaque under fluoroscopic guidance. The ureter was dilated down to the ureterovesical junction. I then removed the catheter and on delayed imaging, the right kidney and ureter drained with no obvious obstruction. Likewise, I attempted to cannulate the left ureteral orifice. I encountered resistance in that distal ureter but in this case I was able to inject a small amount of contrast and significant J hooking of the distal ureter was identified. I was not able to maneuver a wire into the proximal ureter, so a complete left retrograde pyelogram was not completed. I then took a random bladder biopsies from the right bladder wall, left bladder wall and bladder neck area. Each of the biopsies were sent to pathology for permanent section. The biopsy sites were then cauterized using bipolar cautery. The bladder was emptied and the cystoscope was removed. The patient tolerated this procedure well with no complications.
--- NOTE | 2023-10-19 11:38 | W.ANESPOSTOP ---
Postoperative Evaluation Date, Time and Location Date Performed: 10/19/23 Time Performed: 11:38 Patient Location: Day Surgery Unit Vital Signs Most Recent Imported Vital Signs: Most Recent Vital Signs Temp Pulse Resp BP Pulse Ox 36.6 C 57 L 16 96/56 L 100 10/19/23 11:32 10/19/23 11:32 10/19/23 11:32 10/19/23 11:25 10/19/23 11:32 Pain Score Most Recent Pain Score: Most Recent Pain Score Pain Level 0 10/19/23 11:32 Assessment Mental Status: Awake (Alert & Oriented to Patient Baseline) Airway and Respiratory Function: Patent airway with normal (patient baseline) respiratory exam Cardiovascular Function: Hemodynamically Stable Hydration Status: Adequately Hydrated Nausea & Vomiting: No Nausea or Vomiting Pain: Pt. Denies Any Pain Peripheral Nerve Block: Patient did not receive a nerve block
[2023-10-19] MEDS: Phenazopyridine 200 MG TAB PO (11:55)
== END 2023-10-19 12:36 | disposition home or self-care (01) ==
PROVIDERS: PCP Family Medicine; Visit Provider Urology
PROC: (CPT 74450; principal; 2023-10-19 09:45)
DX: N13.30 Unspecified hydronephrosis (principal); R31.0 Gross hematuria; I10 Essential (primary) hypertension; F41.8 Other specified anxiety disorders; K58.9 Irritable bowel syndrome, unspecified
CPT/HCPCS: 52204; 52005; 88305; 74420; J0690; J1100; J1885; J2001; J2250; J2405; J2704; J3010; Q9967

== ENCOUNTER 2024-11-17 03:24 | Outpatient (CLI) | payer MEDICAID, SELFPAY ==
[2024-11-17 08:31] LABS: ALT 31 U/L (16-63); AST 31 U/L (15-37); Albumin 4.4 g/dL (3.4-5.0); Alkaline Phosphatase 60 U/L (46-116); Anion Gap 7.7 mmol/L (3-11); BUN 17 mg/dL (7-18); Bilirubin, Total 0.8 mg/dL (0.2-1.0); CO2 28.3 mmol/L (21.0-32.0); Calcium 9.4 mg/dL (8.5-10.1); Chloride 104 mmol/L (98-107); Estimated GFR 99.41 (mL/min/1.73m2); Glucose 108 mg/dL (74-106); Potassium 4.6 mmol/L (3.5-5.1); Sodium 140 mmol/L (136-145); Total Protein 8.3 g/dL (6.4-8.2)
== END 2024-11-17 03:25 | disposition home or self-care (01) ==
LOC: LBO 03:24
PROVIDERS: PCP Family Medicine; Visit Provider Urology
DX: Z87.448 Personal history of other diseases of urinary system (principal); Z09 Encounter for follow-up examination after completed treatment for conditions other than malignant neoplasm
CPT/HCPCS: 36415; 80053

== ENCOUNTER 2025-05-02 18:00 | Emergency (ER) | payer MEDICAID, SELFPAY ==
[2025-05-02 18:04] VITALS: BP 131/88; PULSE 88; RESP 18; TEMP 35.9; O2SAT 98
--- NOTE | 2025-05-02 18:10 | ED.GENADUL_ITS ---
Discharge Plan Disposition Patient Disposition: Home Condition: Good Discharge Details Clinical Impression: Diverticulitis Primary Care Provider: Zoie Whitmore ED Provider: Karl Purcell [place] Meds and New Rx's Prescriptions: New amoxicillin-pot clavulanate 875-125 mg tablet 1 tab PO BID Qty: 18 0RF Continued lisdexamfetamine 60 mg capsule 60 mg PO DAILY MDD 60mg Qty: 28 0RF No Action albuterol sulfate 90 mcg/actuation HFA aerosol inhaler 2 puff inhalation Q6H PRN (Reason: shortness of breath or wheezing) Qty: 8.5 0RF lamotrigine 25 mg tablet 25 mg PO .COMPLEX Qty: 42 0RF Rx Instructions: 25 mg orally Take 1 tab, each AM x 2 weeks, Then increase to 2 tabs, each morning x 2 weeks; lamotrigine 100 mg tablet 100 mg PO DAILY Qty: 30 1RF Discharge Instructions Instructions: Diverticulitis Additional Instructions: You were seen for right sided abdominal pain. Your CT scan shows evidence of diverticulitis. You have a normal-appearing appendix. We have started you on antibiotics that you will need to take twice a day for a total of 10 days. Recommend hydration and bland diet until symptoms are improving. Eventually you will need to be on a high-fiber diet. You should follow-up with primary care next week for a recheck. May discuss referral to surgery for possibile of colonoscopy if it is felt necessary. You may take ibuprofen or acetaminophen for pain. Return to ED for worsening pain, fevers, persistent vomiting, other concerns. Stand Alone Forms: Portal Information Referrals: [facility] [Provider Group] Zoie Whitmore MD [Primary Care Provider, Medicine] [facility] Mode of arrival: ambulatory . Date/Time Provider Initiated Documentation: 05/02/25 18:10 . Limitations to Documentation: no limitations . Information obtained by: patient and RN notes reviewed . HPI Narrative: Patient presents to ED with right-sided abdominal pain. He began having lower abdominal discomfort 2 days ago. Over the last 12 hours it has become localized to the right lower quadrant. Some radiation down into the groin. No fever, nausea, vomiting, diarrhea. He has no appetite. He states that as his bladder gets more full the pain gets worse. Once he urinates pain improves. Pain is worse with walking. Denies any back pain. Denies dysuria per se. Has not noticed any hematuria. told him he have to come in for evaluation. Related Data Home Medications Medication Instructions Recorded Confirmed albuterol sulfate 90 mcg/actuation 2 puff inhalation Q 6H PRN 08/03/24 05/02/25 aerosol inhaler shortness of breath or wheez ing #8.5 grams lamotrigine 100 mg tablet 100 mg PO DAILY #30 tabs 05/02/25 lamotrigine 25 mg tablet 25 mg PO .COMPLEX #42 tabs 0 01/19/25 05/02/25 lisdexamfetamine 60 mg capsule 60 mg PO DAILY #28 caps 04/03/25 05/02/25 amoxicillin 875 mg-potassium 1 tab PO BID #18 tabs 10/21 clavulanate 125 mg tablet Previous Rx's Medication Instructions Recorded albuterol sulfate 90 mcg/actuation 2 puff inhalation Q 6H PRN 08/03/24 aerosol inhaler shortness of breath or wheez ing #8.5 grams lamotrigine 100 mg tablet 100 mg PO DAILY #30 tabs lamotrigine 25 mg tablet 25 mg PO .COMPLEX #42 tabs 0 01/19/25 lisdexamfetamine 60 mg capsule 60 mg PO DAILY #28 caps 04/03/25 amoxicillin 875 mg-potassium 1 tab PO BID #18 tabs 10/21 clavulanate 125 mg tablet Allergies Allergy/AdvReac Type Severity Reaction Status Date / Time No Known Allergies Allergy Verified 05/02/25 18:17 General PRAVEEN: 3 Exam Narrative Exam Narrative: Const: WDWN male in NAD. VS per triage. HEENT: NC/AT. Normal facial exam. Neck: Supple. Trachea midline. Lungs: Normal respiratory effort. Lungs are clear. Cor: RRR without murmur. Good radial pulses. GI: Soft and ND. Tender with guarding and rebound in RLQ. Positive Rovsing. Pain with heel drop. Neuro: A+O x 3. Normal speech, mentation, gait. Cranial nerves II - XII grossly intact. No gross motor or sensory deficit. Medical Decision Making Patient presenting to the ED with abdominal pain for 2 days now localized to right lower quadrant with tenderness, guarding, Rovsing all suggestive of acute appendicitis. IV ordered and patient made NPO. He has declined antiemetics or pain medication at this time. Laboratory studies, urinalysis, CT scan abdomen pelvis ordered. Patient's laboratory studies with a white count of 12.3, normal hemoglobin and platelets. Chemistries fairly unremarkable. Potassium a little low and anion gap slightly elevated. Liver function essentially normal except for total bili of 1.1. Urinalysis completely negative. CT scan of the abdomen pelvis shows bilateral hydronephrosis which has been present previously, he is followed closely by urology. He has a normal appendix but does have evidence of diverticulitis. Patient continues to decline anything for nausea or pain. Will begin Augmentin to treat diverticulitis. Recommend plenty of fluids and bland diet until improving. Will eventually need high-fiber diet. May potentially require colonoscopy at some point to rule out possibility of malignancy. May follow-up with primary care next week, consider referral to surgery for scope. Return precautions provided. Lab Data Lab results reviewed: Yes I reviewed the patient's lab results. 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 -hb Had full work up per pt everything came back negative Family history of heart disease in male family member before age 55 Family History Mother Breast cancer Father Heart disease Myocardial infarction Depression Alcohol use disorder Grandfather Heart disease Myocardial infarction Grandfather Heart disease Myocardial infarction Brother Diabetes PTSD (post-traumatic stress disorder) Depression Sister No problems noted. Social History Smoking/Tobacco Use Status: Current-Occasional Tobacco Type: smokeless tobacco Smoking risk assessment performed?: Yes Alcohol Intake: current Alcohol Intake frequency: a few times a month Details: drinks between 3-8 beers / day until starting vyvanse 02/2022 Drug use: Never Substance use type: does not use Details: chewing tobacco occasionally Household members: significant other Housing: apartment Number of Children: 1 Education Level: high school current occupation: self employed carpentry, managing business himself Do you feel safe at home: Yes Do you feel safe in your relationship?: Yes
[2025-05-02 18:17] VITALS: BP 134/88; PULSE 88; RESP 18; TEMP 35.9; O2SAT 98
--- NOTE | 2025-05-02 18:37 | DI.CT_ITS ---
Exam(s) CT ABDOMEN PELVIS W EXAM: CT ABDOMEN PELVIS W CLINICAL HISTORY: RLQ pain/tenderness. TECHNIQUE: Imaging Protocol: Axial computed tomography images with coronal and sagittal reformatted images were created and reviewed CONTRAST MATERIAL: Intravenous: Omnipaque-350 75cc Oral: None COMPARISON: CT CT ABDOMEN PELVIS W from 04/20/2023 FINDINGS: VISUALIZED LUNG BASES: No nodules nor pleural effusions evident. ABDOMEN: There is no ascites. LIVER: There are no focal hepatic lesions evident. No dilated intrahepatic ducts. GALLBLADDER/BILIARY: No obvious gallbladder pathology. CBD is not dilated. PANCREAS: No evidence of pancreatic mass nor dilatation of the pancreatic duct. SPLEEN: Spleen is not enlarged. No obvious intrasplenic lesions. Splenic and portal veins are patent. ADRENALS: There are no significant adrenal masses. KIDNEYS:There is a small nonobstructive 3 millimeter calculus again noted in the lower pole calyx of the left kidney. No calculi seen in the right kidney. No masses nor renal cysts. However, there is again noted dilatation both ureters throughout their length, similar to previous and not associated with calculi in the lower ureters nor obvious mass in the urinary bladder and there are no radiopaque calculi evident in the urinary bladder lumen.. ABDOMINAL AORTA: Abdominal aorta is not enlarged. LYMPH NODES:There is no retroperitoneal nor paraaortic adenopathy. ABDOMINAL WALL: No evidence of significant anterior abdominal wall nor inguinal hernia. GI: There is no evidence of bowel obstruction, free air, nor abscess. PELVIS: GI: No evidence of appendicitis.There is an area circumferential wall edema in the sigmoid with surrounding mesenteric streaking consistent with probable diverticulitis. The culprit diverticulum appears to be on the inferior wall of the sigmoid, as best seen on the coronal images. There is no obvious fistulization to the adjacent urinary bladder. No free air at this time. No formed abscess. LYMPH NODES: There is no intrapelvic nor inguinal adenopathy. REPRODUCTIVE: Prostate size upper normal. Seminal vesicles unremarkable. URINARY BLADDER: As above. OSSEOUS: No fractures and no significant osseous lesions. IMPRESSION: 1. There is a segment of wall edema and inflammatory change in the adjacent mesentery in the upper sigmoid, consistent with acute diverticulitis. There is no free air nor abscess at this time. Close follow-up warranted including colonoscopy when appropriate after treatment to ensure that there is no evidence of malignancy in the sigmoid. 2. Bilateral hydroureter again noted with mild bilateral hydronephrosis. No obvious obstructing radiopaque calculi in the lower ureters nor within the urinary bladder. No obvious mass. May be related to chronic reflux. Recommend urology consultation. There is a small nonobstructive 3 millimeter calculus in lower pole of the left kidney again noted. There are no calculi in the right kidney nor in either ureter. Preliminary V rad report was reviewed RADIATION DOSE DELIVERED: 289.66mGy.cm Total DLP DATA REPOSITORY: All CT scans at this facility are submitted to the National Radiology Data Registry (NRDR) Dose Index Registry (DIR) with the [employer] (A[employer]). RADIATION OPTIMIZATION: All CT scans at this facility use at least one of these dose optimization techniques: automated exposure control; mA and/or kV adjustment per patient size (includes targeted exams where dose is matched to clinical indication); or iterative reconstruction.
[2025-05-02 19:07] LABS: Abs Immature Grans 0.04 10^3/uL (0.0-0.06); HCT 41.3 % (40.0-50.0); HGB 13.6 g/dL (13.5-17.5); Immature Grans % 0.3 %; MCH 26.6 pg (27.0-33.0); MCHC 32.9 % (32.0-36.0); MCV 81 fL (80-95); MPV 9.7 fL (8.0-11.0); Platelet Count 265 10^3/uL (130-400); RBC 5.11 10^6/uL (4.36-5.78); RDW 13.1 % (11.8-14.1); RDW-SD 38.2 fL; WBC 12.56 10^3/uL (4.4-10.8)
[2025-05-02] MEDS: Normal Saline Flush 10 ML SYR IVP (19:19)
[2025-05-02 19:20] LABS: ALT 32 U/L (16-63); AST 22 U/L (15-37); Albumin 4.3 g/dL (3.4-5.0); Alkaline Phosphatase 86 U/L (46-116); Anion Gap 11.4 mmol/L (3-11); BUN 9 mg/dL (7-18); Bilirubin, Total 1.1 mg/dL (0.2-1.0); CO2 28.6 mmol/L (21.0-32.0); Calcium 9.2 mg/dL (8.5-10.1); Chloride 98 mmol/L (98-107); Glucose 75 mg/dL (74-106); Lipase 29 U/L (<78); Potassium 3.4 mmol/L (3.5-5.1); Sodium 138 mmol/L (136-145); Total Protein 8.5 g/dL (6.4-8.2)
[2025-05-02] MEDS: Normal Saline - Diluent 50 ML VIAL IJ (19:24)
[2025-05-02] MEDS: Omnipaque 350 MG/ML 100 ML BTL IJ (19:24)
[2025-05-02 19:38] LABS: Glucose Negative (Negative)
[2025-05-02] MEDS: Lactated Ringers 1,000 ML 125 ML IV (19:39)
--- NOTE | 2025-05-02 20:12 | DI.VRAD_ITS ---
PROCEDURE INFORMATION: Exam: CT Abdomen And Pelvis With Contrast Exam date and time: 05/02/2025 7:23 PM Age: 39 years old Clinical indication: Other: Rlq pain/tenderness TECHNIQUE: Imaging protocol: Computed tomography of the abdomen and pelvis with contrast. Contrast material: OMNIPAQUE 350; Contrast volume: 75 ml; Contrast route: INTRAVENOUS (IV); COMPARISON: CT ABDOMEN PELVIS W 20/04/2023 11:36 FINDINGS: Lungs: The lungs are normal. Pleural spaces: There is no evidence of pneumothorax. There are no pleural effusions present. Heart: The cardiac structures are normal. Liver: There is a diffuse decrease in hepatic parenchymal density, consistent with mild fatty infiltration. Gallbladder and biliary ducts: Normal. No calcified stones. No ductal dilation. Pancreas: The pancreas is normal. Spleen: The spleen is normal. Adrenal glands: The adrenal glands are normal. Kidneys and ureters: There is left greater than right hydronephrosis and hydroureter. Consider bilateral vesicoureteral reflux. Nonobstructing 2 mm calcified renal calculus present within the lower pole left kidney. Stomach and bowel: There is no evidence of intestinal obstruction. There is a focal segment of wall thickening at the junction of the sigmoid and descending colon, with associated inflammatory changes within the mesentery, consistent in appearance with acute diverticulitis. This is best demonstrated on images 60 through 70 series 8. No evidence of free fluid, abscess or free air to suggest perforation. As an underlying colonic malignancy cannot be entirely excluded, a follow-up examination after a course of treatment is recommended if clinically warranted. There is mild increased colonic fecal content. The colon is nondilated. These findings suggest a mild degree of constipation. Clinical correlation recommended. Appendix: A normal appendix is identified. There is no evidence of distention or periappendiceal inflammation to suggest appendicitis. Intraperitoneal space: Vasculature: The aorta is unremarkable without evidence of significant atherosclerosis or aneurysmal disease. The peripheral arterial vascular system visualized is unremarkable. The portal venous system visualized is unremarkable. The peripheral venous vascular system visualized is unremarkable. Lymph nodes: There is no evidence of lymphadenopathy. Urinary bladder: The bladder is normal. Reproductive: The prostate gland demonstrates calcification and moderate nonspecific enlargement. The seminal vesicles are normal. Bones/joints: The skeletal structures and soft tissues show no evidence of fracture or other acute processes. Soft tissues: The extra-abdominal soft tissues are normal. IMPRESSION: 1. There is a focal segment of wall thickening at the junction of the sigmoid and descending colon, with associated inflammatory changes within the mesentery, consistent in appearance with acute diverticulitis. This is best demonstrated on images 60 through 70 series 8. No evidence of free fluid, abscess or free air to suggest perforation. 2. There is left greater than right moderate to severe hydronephrosis and hydroureter. Consider bilateral vesicoureteral reflux. 3. As an underlying colonic malignancy cannot be entirely excluded, a follow-up examination after a course of treatment is recommended if clinically warranted. Dictated and Authenticated by: Ramón Pimentel MD. Orderin Binh Barajas MD
[2025-05-02 21:02] VITALS: BP 127/80; PULSE 79; RESP 16; TEMP 37.1; O2SAT 99
[2025-05-02] MEDS: Amox. 875/Clav. 125, 2 TABS/BTL 1 TAB PO (21:02)
== END 2025-05-02 21:03 | disposition home or self-care (01) ==
PROVIDERS: Emergency Provider Emergency Medicine; PCP Family Medicine
DX: K57.92 Diverticulitis of intestine, part unspecified, without perforation or abscess without bleeding (principal); R10.31 Right lower quadrant pain
CPT/HCPCS: 99284; 99285; 80053; 83690; 74177; 81003; 85025; J3490